=== PATIENT | female | born 1975 | race Caucasian/White ===

== ENCOUNTER → 2019-12-10 | Outpatient (CLI) | payer OTHER | END | disposition home or self-care (01) | LOC: RADMRIMAIN 09:53 | PROVIDERS: ATTEND Orthopaedic Surgery | DX: Z53.9 Procedure and treatment not carried out, unspecified reason (principal) ==

== ENCOUNTER → 2021-06-11 | Outpatient (CLI) | payer OTHER ==
--- NOTE | 2021-06-11 09:05 | US ---
EXAMINATION TYPE: US abdomen complete DATE OF EXAM: 06/11/2021 COMPARISON: NONE CLINICAL HISTORY: R10.2 PELVIC AND PERINEAL PAIN. RLQ pain for the past 2 weeks, patient states that she had gallstones removed 20 plus years ago with out cholecystectomy. EXAM MEASUREMENTS: Liver Length: 19.2 cm Gallbladder Wall: no seen cm CBD: 0.6 cm Spleen: 10.0 x 3.7 cm Right Kidney: 13.6 x 6.6 x 4.3 cm Left Kidney: 11.8 x 6.7 x 6.4 cm Pancreas: Tail obscured by overlying bowel gas Liver: Increased attenuation, decreased visualization of vessels suggestive of fatty infiltrate Gallbladder: Shadowing area in gallbladder fossa, possible impacted gallbladder vrs bowel Evidence for sonographic Lundberg's sign: No CBD: wnl Spleen: wnl Right Kidney: No hydronephrosis or masses seen Left Kidney: Prominent calyces with no stones seen Upper IVC: wnl Abd Aorta: wnl Limited exam due to patient body habitus, shadowing area seen in gallbladder fossa possible impacted gallbladder vrs bowel, prominent left renal calyces without seeing renal stones. The intrahepatic portion of the IVC and proximal abdominal aorta are within normal limits. Common bi le duct is unremarkable. The visualized portions of the pancreas are homogenous. The spleen is unre markable. No renal lesions are seen. IMPRESSION: 1. I cannot exclude cholelithiasis. 2. Prominent calyces upper pole left kidney. 3. Fatty liver.
--- NOTE | 2021-06-11 09:07 | US ---
EXAMINATION TYPE: US pelvic complete DATE OF EXAM: 06/11/2021 COMPARISON: NONE CLINICAL HISTORY: R10.2 PELVIC AND PERINEAL PAIN. TECHNIQUE: Transabdominal (TA). Transabdominal sonographic images of the pelvis were acquired. Date of LMP: Patient unsure possible 2 weeks ago. EXAM MEASUREMENTS: Uterus: 11.9 x 6.5 x 4.5 cm Endometrial Stripe: 0.9 cm Right Ovary: 3.1 x 2.0 x 1.9 cm Left Ovary: 2.3 x 2.3 x 1.5 cm 1. Uterus: Anteverted wnl 2. Endometrium: wnl 3. Right Ovary: wnl 4. Left Ovary: wnl 5. Bilateral Adnexa: wnl 6. Posterior cul-de-sac: wnl No abnormalities seen at this time. IMPRESSION: No significant abnormality appreciated at this time.
== END | disposition home or self-care (01) ==
LOC: RADUSWWP 07:53
PROVIDERS: ATTEND Family Medicine
DX: K76.0 Fatty (change of) liver, not elsewhere classified (principal)
CPT/HCPCS: 76700; 76856